=== PATIENT | male | born 1990 | race Asian ===

== ENCOUNTER → 2016-07-21 | Outpatient (CLI) | payer OTHER ==
[~2016-07-21] MED LIST: MULTTAB5 PO; PANT40TA PO
[2016-07-21 14:42] LABS: BASO % 0.4 %; BASO ABS # 0.02 K/uL (0-0.2); COMPLETE YES; EOS % 0.6 %; HEMATOCRIT 40.7 % (42-52); LYMPH % 33.3 %; LYMPH ABS # 1.56 K/uL (1.2-3.4); MEAN CELL VOLUME 90.6 fL (80-100); MEAN CORPUSCULAR HEMOGLOBIN 29.4 pg (25-34); MEAN CORPUSCULAR HGB CONC 32.4 g/dl (32-36); MEAN PLATELET VOLUME 9.6 fL (7.4-10.4); MONO % 7.1 %; NEUT % 58.6 %; PLATELET COUNT 256 K/uL (130-400); RED BLOOD COUNT 4.49 M/uL (4.7-6.1); WHITE BLOOD COUNT 4.68 K/uL (4.8-10.8)
[2016-07-21 14:55] LABS: ALT/SGPT 60 U/L (12-78); AST/SGOT 19 U/L (15-37); BLOOD UREA NITROGEN 13 mg/dl (7-18); CALCIUM 8.8 mg/dl (8.5-10.1); CARBON DIOXIDE 32 mmol/L (21-32); CHLORIDE 105 mmol/L (98-107); CREATININE 0.97 mg/dl (0.60-1.40); GLUCOSE 75 mg/dl (70-99); POTASSIUM 4.1 mmol/L (3.5-5.1); SODIUM 141 mmol/L (136-145)
[2016-07-21 15:06] LABS: ALB/GLOB RATIO 1.1 (0.9-2); ALKALINE PHOSPHATASE 65 U/L (45-117); C-REACTIVE PROTEIN < 0.29 mg/dl (0-0.29); THYROID STIMULATING HORMONE 0.899 uIu/ml (0.300-4.500)
== END | disposition home or self-care (01) ==
LOC: C.LAB1850 12:41
PROVIDERS: ATTEND Registered Nurse
DX: R68.81 Early satiety (principal)

== ENCOUNTER → 2016-08-05 | Outpatient (CLI) | payer OTHER ==
--- NOTE | 2016-08-05 13:21 | DIAGNOSTIC IMAGING REPORT ---
NUCLEAR GASTRIC EMPTYING STUDY: CLINICAL HISTORY: K21.9 GERD without [id number] [id number] early satiety COMPARISON STUDY: None TECHNIQUE: Following the oral administration of 1.1 mCi of technetium 99m sulfur colloid in egg sandwich and 8 ounces of water, static abdominal images are performed anteriorly and posteriorly at 0 minutes, 1 hour, 2 hours, and 4 hour time intervals. Gastric emptying was calculated utilizing the geometric mean method. FINDINGS: There is approximately 89 % gastric activity remaining at the 1 hour time interval, 70 % at the 2 hour time interval (normal is less than 60%), and 25 % remaining at the 4 hour time interval (normal is less than 10%). These findings are consistent with abnormal study with prolonged gastric emptying IMPRESSION: Findings are consistent with abnormal study with prolonged gastric emptying. Electronically signed by: Primo Sellers M.D. 08/05/2016 1:19 PM Dictated Date/Time: 08/05/2016 1:18 PM
== END | disposition home or self-care (01) ==
LOC: C.NUCL 08:25
PROVIDERS: ATTEND Registered Nurse
DX: K21.9 Gastro-esophageal reflux disease without esophagitis (principal); K29.70 Gastritis, unspecified, without bleeding; R68.81 Early satiety

== ENCOUNTER → 2016-08-07 | Day surgery (SDC) | payer OTHER ==
[2016-08-06 14:51] VITALS: Ht 175.3 cm; Wt 59.1 kg
[~2016-08-07] VITALS: Ht 175.3 cm; Wt 59.1 kg
[~2016-08-07] MED LIST changes: +FENTANYL CITR 50 MCG/1 ML 5ML VIAL ONE; +MIDAZOLAM HCL 5 MG/ML 1 ML VIAL ONE; +SODIUM CHLORIDE 0.9% 500ML 500 ML IV ONE
--- NOTE | 2016-08-07 10:10 | Endo History and Physical ---
History & Physical Date of Service: August 07, 2016. Chief Complaint: Rectal bleeding, anemia Referring Physician: [facility] History of Present Illness 25 yo male who presents for Colonoscopy secondary to rectal bleeding and anemia. Past Surgical History Hx Cardiac Surgery: No Hx Internal Defibrillator: No Hx Pacemaker: No Hx Abdominal Surgery: Yes (APPY) Hx of Implantable Prosthesis: No Hx Post-Op Nausea and Vomiting: No Hx Cancer Surgery: No Hx Thoracic Surgery: No Hx Orthopedic: No Hx Urinary Tract Surgery: No Family History None Social History Smoking Status: Never Smoker Hx Substance Use: No Hx Alcohol Use: No Allergies Coded Allergies: NO KNOWN DRUG ALLERGIES (Verified Allergy, Unknown, ., 08/06/16) Current Medications Reported Home Medications Medications Dose Route/Sig Max Daily Dose Days Date Category Centrum (Multiple Vitamins W/ Minerals) 1 Tab Tab 1 Tab PO DAILY AFTERNOON 08/06/16 Reported Protonix (Pantoprazole Sodium) 40 Mg Tab 40 Mg PO QAM 08/06/16 Reported Vital Signs Weight (Kilograms): 59.09 Height (Feet): 0 Height (Inches): 69 Date Time Temp Pulse Resp B/P Pulse Ox O2 Delivery O2 Flow Rate FiO2 08/07/16 09:26 36.8 51 16 108/51 100 Room Air Physical Exam General Appearance: WD/WN, no apparent distress Respiratory/Chest: Auscultation: breath sounds normal Cardiovascular: Heart Auscultation: RRR Abdomen: Bowel Sounds: normal Inspection & Palpation: soft, non-distended, no tenderness, guarding & rebound Assessment and Plan Assessment: 25 yo male who presents for Colonoscopy secondary to rectal bleeding and anemia. Plan: Proceed with colonoscopy.
--- NOTE | 2016-08-07 10:48 | GI REPORT ---
Procedure Date: 08/07/2016 9:30 AM Procedure: Colonoscopy Indications: Rectal bleeding, Iron deficiency anemia Medicines: Midazolam 4 mg IV, Fentanyl 100 micrograms IV Complications: No immediate complications. Estimated Blood Loss: Estimated blood loss: none. Procedure: Pre-Anesthesia Assessment: - Prior to the procedure, a History and Physical was performed, and patient medications and allergies were reviewed. The patient's tolerance of previous anesthesia was also reviewed. The risks and benefits of the procedure and the sedation options and risks were discussed with the patient. All questions were answered, and informed consent was obtained. Prior Anticoagulants: The patient has taken no previous anticoagulant or antiplatelet agents. ASA Grade Assessment: III - A patient with severe systemic disease. After reviewing the risks and benefits, the patient was deemed in satisfactory condition to undergo the procedure. After I obtained informed consent, the scope was passed under direct vision. Throughout the procedure, the patient's blood pressure, pulse, and oxygen saturations were monitored continuously. The scope was introduced through the anus and advanced to the terminal ileum. The colonoscopy was performed without difficulty. The patient tolerated the procedure well. The quality of the bowel preparation was good. The terminal ileum, ileocecal valve, appendiceal orifice, and rectum were photographed. Findings: Non-bleeding internal hemorrhoids were found during retroflexion. The hemorrhoids were small. The exam was otherwise without abnormality. Impression: - Non-bleeding internal hemorrhoids. - The examination was otherwise normal. - No specimens collected. Recommendation: - Resume previous diet. - Continue present medications. - Repeat colonoscopy for surveillance based on pathology results. - Return to primary care physician as previously scheduled. Spike Lucero DO 08/07/2016 10:48:20 AM This report has been signed electronically. Note Initiated On: 08/07/2016 9:30 AM I attest to the content of the Intraoperative Record and orders documented therein, exceptions below
--- NOTE | 2016-08-07 10:51 | Discharge Instructions ---
Endoscopy Patient Instructions Date / Procedure(s) Performed August 07, 2016. Colonoscopy Allergy Information Coded Allergies: NO KNOWN DRUG ALLERGIES (Verified Allergy, Unknown, ., 08/06/16) Discharge Date / Findings August 07, 2016. Internal hemorrhoids Medication Instructions OK to resume all medications today as prescribed Reported Home Medications Medications Dose Route/Sig Max Daily Dose Days Date Category Centrum (Multiple Vitamins W/ Minerals) 1 Tab Tab 1 Tab PO DAILY AFTERNOON 08/06/16 Reported Protonix (Pantoprazole Sodium) 40 Mg Tab 40 Mg PO QAM 08/06/16 Reported Provider Instructions Activity Restrictions - No exercising or heavy lifting for 24 hours. - Do not drink alcohol the day of the procedure. - Do not drive a car or operate machinery until the day after the procedure. - Do not make any important decisions or sign important papers in 24 hours after the procedure. Following Day: - Return to full activity which may include returning to work/school. Diet Start your diet with liquids and light foods (jello, soup, juice, toast). Then eat your usual diet if not nauseated. Treatment For Common After Affects For mild abdominal pain, bloating, or excessive gas: - Rest - Eat lightly - Lie on right side Follow-Up Information Follow-up with [facility] as scheduled Anesthesia Information What You Should Know You have had a procedure that required some medicine to reduce anxiety and discomfort. This treatment is called moderate sedation. After receiving the treatment, you may be sleepy, but you will be able to breathe on your own. The effects of the treatment may last for several hours. Follow these instructions along with Activity/Diet recommendations noted above: * Do NOT do anything where dizziness or clumsiness would be dangerous. * Rest quietly at home today, then you can be up and about tomorrow. * Have a responsible person stay with you the rest of today. * You may have had an I.V. today. If so, you may take the dressing off later today. Recommendations Call your doctor if: * Trouble breathing * Continuous vomiting for more than 24 hours * Temperature above 101 degrees * Severe abdominal pain or bloating * Pain not relieved by pain medicine ordered * There is increased drainage or redness from any incision * A large amount of rectal bleeding greater than 2-3 tablespoons. (If you had a polyp/s removed or have hemorrhoids, a small amount of blood - from the rectum is to be expected.) * You have any unanswered questions or concerns. IN THE EVENT OF A SERIOUS EMERGENCY, GO TO THE NEAREST EMERGENCY ROOM Your discharge instructions were prepared by provider Spike Lucero. Patient Instructions Signature Page Kelly Sanon Patient (or Guardian) Signature/Date: I have read and understand the instructions given to me by my caregivers. Caregiver/RN/Doctor Signature/Date: The above-named patient and/or guardian has received patient instructions on this date. + Original Patient Signature Page (only) stays with chart. Please make copy for patient.
[2016-08-07 11:40] VITALS: BP 101/59; PULSE 52; O2SAT 100
== END | disposition home or self-care (01) ==
LOC: C.GI 09:09
PROVIDERS: ATTEND Internal Medicine
DX: K64.8 Other hemorrhoids (principal); D50.9 Iron deficiency anemia, unspecified

== ENCOUNTER → 2016-10-09 | Day surgery (SDC) | payer OTHER ==
[2016-09-30 15:44] VITALS: Ht 175.3 cm; Wt 59.1 kg
[~2016-10-09] VITALS: Ht 175.3 cm; Wt 59.1 kg
[~2016-10-09] MED LIST changes: -FENTANYL CITR 50 MCG/1 ML 5ML VIAL ONE; +FENTANYL CITRATE INJ 50 MCG/1 ML 2 ML VIAL ONE; -SODIUM CHLORIDE 0.9% 500ML 500 ML IV ONE
[2016-10-09 09:28] VITALS: BP 92/68; PULSE 38; TEMP 36.5; O2SAT 100
== END | disposition home or self-care (01) ==
LOC: C.GI 09:03
PROVIDERS: ATTEND Internal Medicine
DX: D64.9 Anemia, unspecified (principal); Z53.8 Procedure and treatment not carried out for other reasons; R00.1 Bradycardia, unspecified; K21.9 Gastro-esophageal reflux disease without esophagitis; R63.4 Abnormal weight loss